=== PATIENT | male | born 1975 | race African-American/Black ===

== ENCOUNTER 2016-09-22 08:47 | Emergency (ER) | payer OTHER ==
[~2016-09-22] VITALS: Ht 177.8 cm; Wt 71.6 kg
[~2016-09-22 08:47] MED LIST: ADVAIR 100/501 DISK IH; ADVAIR 250/501 DISK IH; ADVAIR HFA120 INHALA IH; ADVIL200 MG PO; ALBUTEROL SULF8.5 GM IH; AMOXICILLIN500 MG PO; AUGMENTIN875 MG PO; AZITHROMYCIN250 MG PO; AZITHROMYCIN500 M1 PO; Augmentin PO; BENZONATATE100 MG PO; CASTOR OIL PO; CIPRO500 MG PO; DOXYCYCLINE HY100 MG PO; DUONEB 2.5-0.5 M3 ML IH; FAMOTIDINE20 MG PO; FLOVENT 44120 INHALA IH; INDOCIN25 MG PO; KEFLEX500 MG PO; LEVAQUIN500 MG PO; LEVAQUIN750 MG PO; LIDOCAINE20 MG/1 M5 PO; MEDROL DOSEPAK4 MG PO; METOCLOPRAMIDE H5 MG PO; MOTRIN IB200 MG PO; NAPROSYN500 MG PO; NAPROXEN500 MG PO; NOHOMEMEDS; ORAL ANESTHETIC7 GM MM; PEN-VEE K,VEET500 MG PO; PREDNISONE PO; PREDNISONE10 MG PO; PREDNISONE20 MG PO; PREDNISONE50 MG PO; PROVENTIL HFA6.7 GM IH; PROVENTIL,2.5 MG/3 M IH; PROVENTIL2.5 MG/3 M IH; Proventil,Ventolin H IH; REGLAN5 MG PO; TESSALON PERLE100 MG PO; TESSALON200 MG PO; TUMS500 MG PO; ULTRACET1 TABLET PO; VENTOLIN HFA18 GM IH; VIBRAMYCIN100 MG PO; ZITHROMAX TRI-500 MG PO; ZITHROMAX Z-PA250 MG PO; ZITHROMAX250 MG PO; predniSONE PO
[2016-09-22 09:33] LABS: HEMATOCRIT 39.9 % (38.0-50.0); MCH 28.6 PG (29.0-34.0); MCHC 33.1 G/DL (30.0-36.0); MCV 86.4 FL (86-99); MEAN PLAT.VOLUME 10.3 uM^3 (9.0-12.4); PLATELET COUNT 240 K/uL (156-360); RBC DIS.WIDTH-CV 13.8 % (11.8-14.6); RED BLOOD COUNT 4.62 M/uL (4.00-5.50); WHITE BLOOD COUNT 5.4 K/uL (4.1-10.2)
[2016-09-22 09:42] LABS: CHLORIDE 107 mEq/L (99-109); POTASSIUM 4.2 mEq/L (3.7-5.4); SODIUM 139 mEq/L (136-147)
[2016-09-22 09:44] LABS: GLUCOSE 86 mg/dL (70-99)
[2016-09-22 09:45] LABS: ANION GAP 5 MEQ/L (2-14)
[2016-09-22 09:47] LABS: GFR ESTIMATE (CALCULATED) > 59 mL/min/
[2016-09-22 09:48] LABS: UREA NITROGEN (BUN) 16 mg/dL (9-23)
[2016-09-22 09:55] LABS: TROP-I INTERPRETATION NEGATIVE; TROPONIN-I < 0.01 ng/mL (0.0-0.30)
[2016-09-22] MEDS ORDERED: ZITHROMAX Z-PA250 MG PO (11:37)
[2016-09-22] MEDS ORDERED: DELTASONE20 M1 PO (11:37)
[2016-09-22] MEDS ORDERED: ROBITUSSIN AC,T10 ML PO (11:37)
[2016-09-22 11:56] VITALS: BP 122/78
== END 2016-09-22 11:57 | disposition home or self-care (01) ==
LOC: EME 08:47
PROVIDERS: Emergency Medicine
DX: J40 Bronchitis, not specified as acute or chronic (principal); Z72.0 Tobacco use; J45.909 Unspecified asthma, uncomplicated; K21.9 Gastro-esophageal reflux disease without esophagitis; Z87.01 Personal history of pneumonia (recurrent)
CPT/HCPCS: 71010; 80048; 84484; 85027; 93005; 99281; 99284; J7512

== ENCOUNTER 2016-09-29 03:58 | Emergency (ER) | payer OTHER ==
[~2016-09-29] VITALS: Ht 177.8 cm; Wt 69.4 kg
[~2016-09-29 03:58] MED LIST changes: +DELTASONE20 M1 PO; +ROBITUSSIN AC,T10 ML PO
[2016-09-29] MEDS ORDERED: PERCOCET 5/31 TABLET PO (10:21)
[2016-09-29 10:34] VITALS: BP 113/89
== END 2016-09-29 11:09 | disposition home or self-care (01) ==
LOC: EME 03:58
DX: S22.31XA Fracture of one rib, right side, initial encounter for closed fracture (principal); S60.211A Contusion of right wrist, initial encounter; W13.9XXA Fall from, out of or through building, not otherwise specified, initial encounter; F17.200 Nicotine dependence, unspecified, uncomplicated
CPT/HCPCS: 71101; 71250; 73110; 99281; 99284

== ENCOUNTER 2016-11-13 08:56 | Emergency (ER) | payer OTHER ==
[~2016-11-13] VITALS: Ht 177.8 cm; Wt 69.7 kg
[~2016-11-13 08:56] MED LIST changes: +PERCOCET 5/31 TABLET PO
[2016-11-13] MEDS ORDERED: ZITHROMAX Z-PA250 MG PO (11:42)
[2016-11-13] MEDS ORDERED: PREDNISONE50 MG PO (11:42)
[2016-11-13] MEDS ORDERED: PROAIR HFA8.5 GM IH (11:42)
[2016-11-13] MEDS ORDERED: MOTRIN800 MG PO (11:42)
[2016-11-13 11:51] VITALS: BP 108/82
== END 2016-11-13 11:52 | disposition home or self-care (01) ==
LOC: EXP 08:56 → EME 08:56 → EXP 11:52
DX: J20.9 Acute bronchitis, unspecified (principal); R06.2 Wheezing; F17.200 Nicotine dependence, unspecified, uncomplicated
CPT/HCPCS: 71020; 73590; 94640; 99281; 99284; J7512

== ENCOUNTER 2016-11-19 09:22 | Emergency (ER) | payer OTHER ==
[~2016-11-19] VITALS: Ht 177.8 cm; Wt 98.0 kg
[~2016-11-19 09:22] MED LIST changes: +MOTRIN800 MG PO; +PROAIR HFA8.5 GM IH
[2016-11-19 10:38] LABS: EOSINOPHIL (%) 3.2 % (0-5); EOSINOPHIL COUNT 0.1 K/uL (0-0.3); HEMATOCRIT 45.5 % (38.0-50.0); LYMPHOCYTE COUNT 1.5 K/uL (1.0-2.8); MCH 28.9 PG (29.0-34.0); MCHC 33.2 G/DL (30.0-36.0); MEAN PLAT.VOLUME 10.2 uM^3 (9.0-12.4); MONOCYTE (%) 15.7 % (3-12); MONOCYTE COUNT 0.7 K/uL (0-0.8); NEUTROPHIL (%) 45.8 % (45-76); PLATELET COUNT 270 K/uL (156-360); RBC DIS.WIDTH-CV 12.9 % (11.8-14.6); RBC DIS.WIDTH-SD 40.5 % (39-53); RED BLOOD COUNT 5.23 M/uL (4.00-5.50); WHITE BLOOD COUNT 4.3 K/uL (4.1-10.2)
[2016-11-19 10:56] LABS: INFLUENZA A VIRAL ANTIGEN NEGATIVE; INFLUENZA B VIRAL ANTIGEN NEGATIVE
[2016-11-19 11:08] LABS: CHLORIDE 105 mEq/L (99-109); POTASSIUM 3.8 mEq/L (3.7-5.4); SODIUM 141 mEq/L (136-147)
[2016-11-19 11:10] LABS: GLUCOSE 93 mg/dL (70-99)
[2016-11-19 11:11] LABS: ANION GAP 9 MEQ/L (2-14)
[2016-11-19 11:12] LABS: TOTAL BILIRUBIN 0.6 mg/dL (0.0-1.0)
[2016-11-19 11:14] LABS: ALKALINE PHOSPHATASE 54 IU/L (3-129); GFR ESTIMATE (CALCULATED) > 59 mL/min/
[2016-11-19 11:15] LABS: UREA NITROGEN (BUN) 18 mg/dL (9-23)
[2016-11-19 15:02] LABS: TROP-I INTERPRETATION NEGATIVE; TROPONIN-I < 0.01 ng/mL (0.0-0.30)
[2016-11-19 16:11] LABS: TROP-I INTERPRETATION NEGATIVE; TROPONIN-I < 0.01 ng/mL (0.0-0.30)
[2016-11-19] MEDS ORDERED: PREDNISONE50 MG PO (16:24)
[2016-11-19] MEDS ORDERED: LEVAQUIN500 MG PO (16:24)
[2016-11-19 17:12] VITALS: BP 123/85
== END 2016-11-19 17:13 | disposition home or self-care (01) ==
LOC: EME 09:22
PROVIDERS: Emergency Medicine
DX: J45.901 Unspecified asthma with (acute) exacerbation (principal); F17.200 Nicotine dependence, unspecified, uncomplicated
CPT/HCPCS: 71020; 80053; 84484; 85025; 87040; 87502; 93005; 94644; 94645; 99281; 99285; J1956; J2930; J3475; J7030

== ENCOUNTER 2017-01-11 01:01 | Emergency (ER) | payer OTHER ==
[~2017-01-11] VITALS: Ht 180.3 cm; Wt 67.0 kg
[2017-01-11 01:37] LABS: EOSINOPHIL (%) 0.7 % (0-5); EOSINOPHIL COUNT 0.1 K/uL (0-0.3); IMMATURE GRANULOCYTE (%) 0.3 % (0.0-0.7); INSTRUMENT ABS NEUTROPHIL CT 4.2 K/uL; LYMPHOCYTE COUNT 1.9 K/uL (1.0-2.8); MCH 28.7 PG (29.0-34.0); MCHC 32.6 G/DL (30.0-36.0); MEAN PLAT.VOLUME 10.4 uM^3 (9.0-12.4); MONOCYTE (%) 8.1 % (3-12); MONOCYTE COUNT 0.6 K/uL (0-0.8); NEUTROPHIL COUNT 4.2 K/uL (1.8-6.4); PLATELET COUNT 290 K/uL (156-360); RBC DIS.WIDTH-SD 41.8 % (39-53); RED BLOOD COUNT 5.34 M/uL (4.00-5.50); WHITE BLOOD COUNT 6.8 K/uL (4.1-10.2)
[2017-01-11 01:47] LABS: AMYLASE 116 IU/L (1-118); CHLORIDE 109 mEq/L (99-109); POTASSIUM 4.2 mEq/L (3.7-5.4); SODIUM 145 mEq/L (136-147)
[2017-01-11 01:49] LABS: GLUCOSE 97 mg/dL (70-99)
[2017-01-11 01:50] LABS: ANION GAP 12 MEQ/L (2-14)
[2017-01-11 01:52] LABS: SERUM ETHYL ALCOHOL 150 mg/dL
[2017-01-11 01:53] LABS: GFR ESTIMATE (CALCULATED) > 59 mL/min/; UREA NITROGEN (BUN) 16 mg/dL (9-23)
[2017-01-11 01:56] LABS: LIPASE 41 U/L (1.0-51.0)
[2017-01-11] MEDS ORDERED: MOTRIN400 MG PO (02:36)
[2017-01-11] MEDS ORDERED: FLEXERIL10 MG PO (02:37)
== END 2017-01-11 03:09 | disposition home or self-care (01) ==
LOC: EME → TRA 01:01 → EME 01:01 → TRA 03:09
PROVIDERS: Emergency Medicine
PROC: 0HQ0XZZ Repair Scalp Skin, External Approach (ICD-10-PCS; principal; 2017-01-11)
PROC: 3E0234Z Introduction of Serum, Toxoid and Vaccine into Muscle, Percutaneous Approach (ICD-10-PCS; principal; 2017-01-11)
DX: S01.01XA Laceration without foreign body of scalp, initial encounter (principal); S80.11XA Contusion of right lower leg, initial encounter; V03.10XA Pedestrian on foot injured in collision with car, pick-up truck or van in traffic accident, initial encounter; F10.229 Alcohol dependence with intoxication, unspecified; J45.909 Unspecified asthma, uncomplicated; F17.200 Nicotine dependence, unspecified, uncomplicated
CPT/HCPCS: 70450; 71010; 72125; 73590; 80048; 81003; 82150; 83690; 85025; 86900; 86901; 94640; 99281; 99285; G0480

== ENCOUNTER 2017-01-19 04:27 | Emergency (ER) | payer SELFPAY ==
[~2017-01-19] VITALS: Ht 177.8 cm; Wt 69.7 kg
[~2017-01-19 04:27] MED LIST changes: +FLEXERIL10 MG PO; +MOTRIN400 MG PO
[2017-01-19] MEDS ORDERED: PROVENTIL HFA6.7 GM IH (07:18)
[2017-01-19 07:30] VITALS: BP 109/72
== END 2017-01-19 09:40 | disposition home or self-care (01) ==
LOC: EME 04:27
DX: J45.901 Unspecified asthma with (acute) exacerbation (principal); S80.11XD Contusion of right lower leg, subsequent encounter; S01.01XD Laceration without foreign body of scalp, subsequent encounter; Z48.02 Encounter for removal of sutures; M79.604 Pain in right leg; V49.9XXD Car occupant (driver) (passenger) injured in unspecified traffic accident, subsequent encounter; F17.200 Nicotine dependence, unspecified, uncomplicated
CPT/HCPCS: 73590; 94640; 99281; 99284; J1100

== ENCOUNTER 2017-02-28 16:10 | Emergency (ER) | payer SELFPAY ==
[~2017-02-28] VITALS: Ht 177.8 cm; Wt 68.9 kg
[2017-02-28 16:37] LABS: HEMATOCRIT 43.7 % (38.0-50.0); MCH 28.5 PG (29.0-34.0); MCV 88.8 FL (86-99); MEAN PLAT.VOLUME 10.1 uM^3 (9.0-12.4); PLATELET COUNT 264 K/uL (156-360); RBC DIS.WIDTH-CV 14.3 % (11.8-14.6); RBC DIS.WIDTH-SD 46.5 % (39-53); RED BLOOD COUNT 4.92 M/uL (4.00-5.50); WHITE BLOOD COUNT 9.1 K/uL (4.1-10.2)
[2017-02-28 16:46] LABS: CHLORIDE 106 mEq/L (99-109); POTASSIUM 3.6 mEq/L (3.7-5.4); SODIUM 142 mEq/L (136-147)
[2017-02-28 16:47] LABS: GLUCOSE 125 mg/dL (70-99)
[2017-02-28 16:49] LABS: ANION GAP 10 MEQ/L (2-14)
[2017-02-28 16:51] LABS: GFR ESTIMATE (CALCULATED) > 59 mL/min/
[2017-02-28 16:52] LABS: UREA NITROGEN (BUN) 17 mg/dL (9-23)
[2017-02-28] MEDS ORDERED: VENTOLIN HFA18 GM IH (21:04)
[2017-02-28] MEDS ORDERED: PREDNISONE20 MG PO (21:04)
[2017-02-28 22:04] VITALS: BP 113/66
== END 2017-02-28 21:30 | disposition home or self-care (01) ==
LOC: EME 16:10
DX: J20.9 Acute bronchitis, unspecified (principal); J45.909 Unspecified asthma, uncomplicated; F17.200 Nicotine dependence, unspecified, uncomplicated
CPT/HCPCS: 71020; 80048; 85027; 93005; 94640; 94640 76; 99281; 99284; J7512

== ENCOUNTER 2017-04-26 17:03 | Emergency (ER) | payer BC ==
[~2017-04-26] VITALS: Ht 177.8 cm; Wt 74.5 kg
[2017-04-26 18:08] LABS: HEMATOCRIT 41.3 % (38.0-50.0); MCH 28.8 PG (29.0-34.0); MCHC 32.9 G/DL (30.0-36.0); MCV 87.5 FL (86-99); MEAN PLAT.VOLUME 10.4 uM^3 (9.0-12.4); PLATELET COUNT 226 K/uL (156-360); RBC DIS.WIDTH-CV 12.6 % (11.8-14.6); RBC DIS.WIDTH-SD 40.4 % (39-53); RED BLOOD COUNT 4.72 M/uL (4.00-5.50)
[2017-04-26 18:21] LABS: CHLORIDE 107 mEq/L (99-109); POTASSIUM 3.9 mEq/L (3.7-5.4); SODIUM 142 mEq/L (136-147)
[2017-04-26 18:23] LABS: GLUCOSE 105 mg/dL (70-99)
[2017-04-26 18:24] LABS: ANION GAP 9 MEQ/L (2-14)
[2017-04-26 18:26] LABS: GFR ESTIMATE (CALCULATED) > 59 mL/min/
[2017-04-26 18:27] LABS: UREA NITROGEN (BUN) 17 mg/dL (9-23)
[2017-04-26 18:33] LABS: TROP-I INTERPRETATION NEGATIVE; TROPONIN-I < 0.01 ng/mL (0.0-0.30)
[2017-04-26 19:21] LABS: C-REACTIVE PROTEIN 2.2 MG/L (0-10)
[2017-04-26 19:37] LABS: ADD MIUA? YES; BILIRUBIN NEGATIVE; BLOOD NEGATIVE; COLOR YELLOW ((YELLOW)); GLUCOSE (STRIP) NEGATIVE; KETONES NEGATIVE; LEUKOCYTES NEGATIVE; NITRITE NEGATIVE; PROTEIN (STRIP) 30; SPECIFIC GRAVITY 1.029 (1.000-1.030); UROBILINOGEN 0.2 MG/DL (0.2-1.0)
[2017-04-26 19:45] LABS: ADD MEDTOX COMMENT Y; AMPHETAMINE NEGATIVE (500 ng/mL); BARBITURATES NEGATIVE (200 ng/mL); BENZODIAZEPINES NEGATIVE (150 ng/mL); COCAINE NEGATIVE (150 ng/mL); INTERNAL CONTROLS VALID? YES; METHADONE NEGATIVE (200 ng/mL); METHAMPHETAMINE NEGATIVE (500 ng/mL); OPIATES (MORPHINE) NEGATIVE (100 ng/mL); OXYCODONE NEGATIVE (100 ng/mL); PHENCYCLIDINE PRESUMPTIVE POSITIVE (25 ng/mL); PROPOXYPHENE NEGATIVE (300 ng/mL); THC CANNABINOIDS NEGATIVE (50 ng/mL); TRICYCLIC ANTIDEPRESSANTS NEGATIVE (300 ng/mL)
[2017-04-26 20:07] LABS: ERTH.SED.RATE 26 MM/HR (0-15)
[2017-04-26 20:07] LABS: RED BLOOD CELLS 0-5 /HPF (0-5); WHITE BLOOD CELLS 0-5 /HPF (0-5)
[2017-04-26 20:08] LABS: AMORPHOUS URATES CRYSTALS 2+; BACTERIA 1+ /HPF; CALCIUM OXALATE CRYSTALS RARE /HPF; CASTS PRESENT /LPF; CRYSTALS PRESENT; EPITHELIAL CELLS RARE /HPF; FINE GRANULAR CASTS 0-5 /LPF; MUCUS 1+ /LPF; UCUL ADDED? NO
[2017-04-26 20:10] LABS: PHENCYCLIDINE QUANT VALUE 0 NG/ML
[2017-04-26 20:10] LABS: D-DIMER ELISA < 150.00 ng/mLDDU (<230)
[2017-04-26] MEDS ORDERED: MEDROL DOSEPAK4 MG PO (21:01)
[2017-04-26] MEDS ORDERED: VENTOLIN HFA18 GM IH (21:01)
[2017-04-26 21:12] VITALS: BP 131/93
== END 2017-04-26 21:13 | disposition home or self-care (01) ==
LOC: EME 17:03
PROVIDERS: Physician Assistant
DX: R07.89 Other chest pain (principal); F16.90 Hallucinogen use, unspecified, uncomplicated; F12.90 Cannabis use, unspecified, uncomplicated; R00.2 Palpitations; R42 Dizziness and giddiness; R06.02 Shortness of breath; R11.0 Nausea; I45.10 Unspecified right bundle-branch block; Z82.49 Family history of ischemic heart disease and other diseases of the circulatory system; Z87.891 Personal history of nicotine dependence
CPT/HCPCS: 71020; 80048; 81003; 84484; 84999; 85027; 85379; 85651; 86140; 93005; 99281; 99283

== ENCOUNTER 2017-06-18 15:52 | Emergency (ER) | payer BC ==
[~2017-06-18] VITALS: Ht 177.8 cm; Wt 66.8 kg
[2017-06-18 16:13] VITALS: BP 95/70
== END 2017-06-18 18:11 | disposition left against medical advice (07) ==
LOC: EME 15:52
DX: R45.851 Suicidal ideations (principal); F10.10 Alcohol abuse, uncomplicated; F19.10 Other psychoactive substance abuse, uncomplicated; Z53.21 Procedure and treatment not carried out due to patient leaving prior to being seen by health care provider
CPT/HCPCS: 80048; 85027; G0480

== ENCOUNTER 2017-06-22 04:27 | Emergency (ER) | payer BC ==
[~2017-06-22] VITALS: Ht 177.8 cm; Wt 66.9 kg
[2017-06-22 05:27] LABS: CHLORIDE 109 mEq/L (99-109); POTASSIUM 3.6 mEq/L (3.7-5.4); SODIUM 143 mEq/L (136-147)
[2017-06-22 05:30] LABS: GLUCOSE 102 mg/dL (70-99)
[2017-06-22 05:31] LABS: ANION GAP 9 MEQ/L (2-14); TOTAL BILIRUBIN 0.3 mg/dL (0.0-1.0)
[2017-06-22 05:32] LABS: SERUM ETHYL ALCOHOL 43 mg/dL
[2017-06-22 05:33] LABS: ALKALINE PHOSPHATASE 56 IU/L (3-129); GFR ESTIMATE (CALCULATED) > 59 mL/min/
[2017-06-22 05:35] LABS: UREA NITROGEN (BUN) 13 mg/dL (9-23)
[2017-06-22 05:37] LABS: LIPASE 40 U/L (1.0-51.0)
[2017-06-22 05:39] LABS: EOSINOPHIL (%) 2.9 % (0-5); EOSINOPHIL COUNT 0.1 K/uL (0-0.3); HEMATOCRIT 43.7 % (38.0-50.0); IMMATURE GRANULOCYTE (%) 0.2 % (0.0-0.7); INSTRUMENT ABS NEUTROPHIL CT 1.9 K/uL; MCH 28.1 PG (29.0-34.0); MCV 87.6 FL (86-99); MEAN PLAT.VOLUME 10.1 uM^3 (9.0-12.4); MONOCYTE (%) 10.8 % (3-12); MONOCYTE COUNT 0.5 K/uL (0-0.8); NEUTROPHIL (%) 41.6 % (45-76); NEUTROPHIL COUNT 1.9 K/uL (1.8-6.4); PLATELET COUNT 290 K/uL (156-360); RBC DIS.WIDTH-CV 14.4 % (11.8-14.6); RBC DIS.WIDTH-SD 45.8 % (39-53); RED BLOOD COUNT 4.99 M/uL (4.00-5.50); WHITE BLOOD COUNT 4.5 K/uL (4.1-10.2)
[2017-06-22 10:41] VITALS: BP 126/77
== END 2017-06-22 10:43 | disposition home or self-care (01) ==
LOC: EME 04:27
PROVIDERS: Emergency Medicine
DX: J44.1 Chronic obstructive pulmonary disease with (acute) exacerbation (principal); R09.02 Hypoxemia; Z53.20 Procedure and treatment not carried out because of patient's decision for unspecified reasons; F32.1 Major depressive disorder, single episode, moderate; K21.9 Gastro-esophageal reflux disease without esophagitis; F17.200 Nicotine dependence, unspecified, uncomplicated; Z87.01 Personal history of pneumonia (recurrent)
CPT/HCPCS: 71020; 80053; 83690; 85025; 90839; 94640; 94644; 99281; 99285; G0480; J0456; J2405; J2930; J7030

== ENCOUNTER 2017-06-30 07:49 | Emergency (ER) | payer BC ==
[~2017-06-30] VITALS: Ht 177.8 cm; Wt 68.4 kg
[2017-06-30 09:02] VITALS: BP 122/92
[2017-06-30] MEDS ORDERED: ALBUTEROL2.5 MG/3 M IH (09:07)
[2017-06-30] MEDS ORDERED: PROVENTIL HFA6.7 GM IH (09:07)
== END 2017-06-30 09:02 | disposition left against medical advice (07) ==
LOC: EME 07:49
DX: J45.909 Unspecified asthma, uncomplicated (principal); F41.9 Anxiety disorder, unspecified; R06.02 Shortness of breath; F17.200 Nicotine dependence, unspecified, uncomplicated; K21.9 Gastro-esophageal reflux disease without esophagitis; F32.9 Major depressive disorder, single episode, unspecified
CPT/HCPCS: 99281; 99284

== ENCOUNTER 2017-12-15 03:47 | Emergency (ER) | payer BC ==
[~2017-12-15] VITALS: Ht 177.8 cm; Wt 71.4 kg
[~2017-12-15 03:47] MED LIST changes: +ALBUTEROL2.5 MG/3 M IH
[2017-12-15] MEDS ORDERED: ZITHROMAX Z-PA250 MG PO (04:57)
[2017-12-15] MEDS ORDERED: PREDNISONE50 MG PO (04:57)
[2017-12-15] MEDS ORDERED: PROVENTIL,2.5 MG/3 M IH (06:24)
[2017-12-15 06:27] VITALS: BP 111/84
== END 2017-12-15 06:37 | disposition home or self-care (01) ==
LOC: EME 03:47
DX: J44.1 Chronic obstructive pulmonary disease with (acute) exacerbation (principal); R07.9 Chest pain, unspecified; F17.200 Nicotine dependence, unspecified, uncomplicated; Z87.01 Personal history of pneumonia (recurrent); K21.9 Gastro-esophageal reflux disease without esophagitis; F41.9 Anxiety disorder, unspecified
CPT/HCPCS: 71045; 94644; 99281; 99285; J7512

== ENCOUNTER 2018-03-09 04:06 | Inpatient (IN) | payer BC ==
[~2018-03-09] VITALS: Ht 177.8 cm; Wt 71.5 kg
[2018-03-09 05:29] LABS: HEMATOCRIT 37.7 % (38.0-50.0); HEMOGLOBIN 12.6 G/DL (12.5-16.6); MCHC 33.4 G/DL (30.0-36.0); MCV 86.9 FL (86-99); PLATELET COUNT 339 K/uL (156-360); RBC DIS.WIDTH-CV 13.2 % (11.8-14.6); RBC DIS.WIDTH-SD 41.6 % (39-53); RED BLOOD COUNT 4.34 M/uL (4.00-5.50)
[2018-03-09 05:41] LABS: CHLORIDE 105 mEq/L (99-109); POTASSIUM 3.6 mEq/L (3.7-5.4); SODIUM 139 mEq/L (136-147)
[2018-03-09 05:42] LABS: MAGNESIUM 1.9 mg/dL (1.3-2.7)
[2018-03-09 05:43] LABS: GLUCOSE 121 mg/dL (70-99)
[2018-03-09 05:47] LABS: CREATININE 0.9 mg/dL (0.6-1.3); GFR ESTIMATE (CALCULATED) > 59 mL/min/ (58.99-99999)
[2018-03-09 05:48] LABS: UREA NITROGEN (BUN) 16 mg/dL (9-23)
[2018-03-09 05:55] LABS: TROP-I INTERPRETATION NEGATIVE; TROPONIN-I < 0.01 ng/mL (0.0-0.30)
[2018-03-09 12:55] VITALS: BP 123/61
[2018-03-09 13:16] LABS: TROP-I INTERPRETATION NEGATIVE; TROPONIN-I < 0.01 ng/mL (0.0-0.30)
[2018-03-09 15:10] VITALS: BP 119/66
[2018-03-09 18:15] LABS: TROP-I INTERPRETATION NEGATIVE; TROPONIN-I < 0.01 ng/mL (0.0-0.30)
[2018-03-09 19:49] VITALS: BP 122/64
[2018-03-10 00:27] VITALS: BP 131/64
[2018-03-10 04:40] VITALS: BP 99/55
[2018-03-10 07:00] VITALS: BP 107/66
[2018-03-10] MEDS ORDERED: ASPIR-LOW81 MG PO (11:19)
[2018-03-10] MEDS ORDERED: PREDNISONE5 MG PO (11:20)
[2018-03-10] MEDS ORDERED: AZITHROMYCIN500 MG PO (11:20)
[2018-03-10] MEDS ORDERED: DULERA 200 MCG/13 GM IH (11:22)
[2018-03-10 12:43] VITALS: BP 110/78
== END 2018-03-10 15:00 | disposition home or self-care (01) | DRG 191 ==
LOC: EME 04:06 → EDOF 07:36 → 4SOUTH 07:36 → EDOF 07:36 → ENRESERV 07:37 → 4SOUTH 12:29
PROVIDERS: Physician Assistant
DX: J44.1 Chronic obstructive pulmonary disease with (acute) exacerbation (principal); J20.9 Acute bronchitis, unspecified; J44.0 Chronic obstructive pulmonary disease with (acute) lower respiratory infection; J45.901 Unspecified asthma with (acute) exacerbation; J84.9 Interstitial pulmonary disease, unspecified; J84.10 Pulmonary fibrosis, unspecified; K21.9 Gastro-esophageal reflux disease without esophagitis; F32.9 Major depressive disorder, single episode, unspecified; F41.9 Anxiety disorder, unspecified; F17.200 Nicotine dependence, unspecified, uncomplicated; Z59.0 Homelessness; Z91.19 Patient's noncompliance with other medical treatment and regimen; Z87.01 Personal history of pneumonia (recurrent)
CPT/HCPCS: 71046; 80048; 83735; 84238 90; 84484; 85027; 93005; 94640; 94640 76; 94760; 99202; 99281; 99285; G0378; J0456; J1644; J2920; J2930

== ENCOUNTER 2018-03-27 07:09 | Emergency (ER) | payer BC ==
[~2018-03-27] VITALS: Ht 177.8 cm; Wt 70.0 kg
[~2018-03-27 07:09] MED LIST changes: +ASPIR-LOW81 MG PO; +AZITHROMYCIN500 MG PO; +DULERA 200 MCG/13 GM IH; +PREDNISONE5 MG PO
[2018-03-27 08:26] LABS: HEMATOCRIT 37.4 % (38.0-50.0); HEMOGLOBIN 12.4 G/DL (12.5-16.6); MCH 29.2 PG (29.0-34.0); MCHC 33.2 G/DL (30.0-36.0); RBC DIS.WIDTH-CV 13.7 % (11.8-14.6); RBC DIS.WIDTH-SD 43.9 % (39-53); RED BLOOD COUNT 4.25 M/uL (4.00-5.50); WHITE BLOOD COUNT 4.7 K/uL (4.1-10.2)
[2018-03-27 08:37] LABS: CHLORIDE 106 mEq/L (99-109); SODIUM 141 mEq/L (136-147)
[2018-03-27 08:39] LABS: GLUCOSE 119 mg/dL (70-99)
[2018-03-27 08:42] LABS: CREATININE 1.3 mg/dL (0.6-1.3); GFR ESTIMATE (CALCULATED) > 59 mL/min/ (58.99-99999)
[2018-03-27 08:43] LABS: UREA NITROGEN (BUN) 24 mg/dL (9-23)
[2018-03-27 08:59] LABS: PLAT.SUFFICIENCY ADEQUATE
[2018-03-27 09:06] LABS: PLATELET COUNT 199 K/uL (156-360)
[2018-03-27] MEDS ORDERED: PREDNISONE20 MG PO (09:24)
[2018-03-27] MEDS ORDERED: DUONEB 2.5-0.5 M3 ML AEROSOL (09:44)
[2018-03-27] MEDS ORDERED: VENTOLIN HFA18 GM IH (09:44)
[2018-03-27] MEDS ORDERED: FIORICET 50-301 EAC1 PO (09:44)
[2018-03-27 10:21] VITALS: BP 100/59
== END 2018-03-27 10:33 | disposition home or self-care (01) ==
LOC: EME 07:09
PROVIDERS: Nurse Practitioner Family
DX: J44.1 Chronic obstructive pulmonary disease with (acute) exacerbation (principal); F17.210 Nicotine dependence, cigarettes, uncomplicated; K21.9 Gastro-esophageal reflux disease without esophagitis; Z87.01 Personal history of pneumonia (recurrent); Z90.81 Acquired absence of spleen
CPT/HCPCS: 80048; 85027; 94644; J2930

== ENCOUNTER 2018-04-29 17:56 | Inpatient (IN) | payer BC ==
[~2018-04-29] VITALS: Ht 177.8 cm; Wt 68.0 kg
[~2018-04-29 17:56] MED LIST changes: +DUONEB 2.5-0.5 M3 ML AEROSOL; +FIORICET 50-301 EAC1 PO
[2018-04-29 18:25] LABS: BASOPHIL (%) 0.6 % (0-1); EOSINOPHIL (%) 1.7 % (0-5); EOSINOPHIL COUNT 0.1 K/uL (0-0.3); HEMATOCRIT 39.3 % (38.0-50.0); HEMOGLOBIN 13.1 G/DL (12.5-16.6); IMMATURE GRANULOCYTE (%) 0.4 % (0.0-0.7); LYMPHOCYTE (%) 30.7 % (15-42); LYMPHOCYTE COUNT 2.1 K/uL (1.0-2.8); MCH 29.8 PG (29.0-34.0); MCHC 33.3 G/DL (30.0-36.0); MCV 89.3 FL (86-99); MONOCYTE (%) 7.7 % (3-12); MONOCYTE COUNT 0.5 K/uL (0-0.8); NEUTROPHIL (%) 58.9 % (45-76); NEUTROPHIL COUNT 4.1 K/uL (1.8-6.4); PLATELET COUNT 268 K/uL (156-360); RBC DIS.WIDTH-CV 13.9 % (11.8-14.6); RBC DIS.WIDTH-SD 45.5 % (39-53)
[2018-04-29 18:40] LABS: AMYLASE 66 IU/L (1-118); CHLORIDE 105 mEq/L (99-109); POTASSIUM 3.5 mEq/L (3.7-5.4); SODIUM 140 mEq/L (136-147)
[2018-04-29 18:42] LABS: GLUCOSE 121 mg/dL (70-99)
[2018-04-29 18:45] LABS: SERUM ETHYL ALCOHOL 69 mg/dL
[2018-04-29 18:46] LABS: CREATININE 0.9 mg/dL (0.6-1.3); GFR ESTIMATE (CALCULATED) > 59 mL/min/ (58.99-99999)
[2018-04-29 18:47] LABS: UREA NITROGEN (BUN) 15 mg/dL (9-23)
[2018-04-29 18:49] LABS: LIPASE 20 U/L (1.0-51.0)
[2018-04-29 19:04] LABS: APPEARANCE SL.HAZY ((CLEAR)); BILIRUBIN NEGATIVE; BLOOD NEGATIVE; COLOR YELLOW ((YELLOW)); GLUCOSE (STRIP) NEGATIVE; KETONES NEGATIVE; LEUKOCYTES NEGATIVE; NITRITE NEGATIVE; PROTEIN (STRIP) 100; SPECIFIC GRAVITY 1.025 (1.000-1.030)
[2018-04-29 19:15] LABS: BACTERIA RARE /HPF; EPITHELIAL CELLS RARE /HPF; HYALINE CASTS TNTC /LPF; MUCUS 3+ /LPF; UCUL ADDED? NO; WHITE BLOOD CELLS 0-5 /HPF (0-5)
[2018-04-29 19:21] LABS: AMPHETAMINE NEGATIVE (500 ng/mL); BARBITURATES NEGATIVE (200 ng/mL); BENZODIAZEPINES NEGATIVE (150 ng/mL); BUPRENORPHINE NEGATIVE (10 ng/mL); COCAINE NEGATIVE (150 ng/mL); METHADONE NEGATIVE (200 ng/mL); METHAMPHETAMINE NEGATIVE (500 ng/mL); OPIATES (MORPHINE) NEGATIVE (100 ng/mL); OXYCODONE NEGATIVE (100 ng/mL); PHENCYCLIDINE PRESUMPTIVE POSITIVE (25 ng/mL); PROPOXYPHENE NEGATIVE (300 ng/mL); THC CANNABINOIDS PRESUMPTIVE POSITIVE (50 ng/mL); TRICYCLIC ANTIDEPRESSANTS NEGATIVE (300 ng/mL)
[2018-04-29 22:50] VITALS: BP 105/80
[2018-04-29 23:00] VITALS: BP 105/80
[2018-04-30] VITALS (18 sets, daily range): BP systolic 94–1123; BP diastolic 64–93
[2018-04-30 00:24] LABS: DEVICE VENT; FI02 100 %; MECHANICAL RATE 12 resp/min; MODE AC; PEEP 5 CM/H20; SITE RR; TIDAL VOLUME 400 ML; TOTAL RESP RATE 12 resp/min
[2018-04-30 00:25] LABS: BASE EXCESS 3.2 mEq/L (-3 to +3); BICARBONATE 31.5 mEq/L (22-26); CARBOXY HGB 0.9 % (0-5); METHEMOGLOBIN 0 % (0-1.5); PCO2 67 mm Hg (35-45); PO2 445 mm Hg (80-100); pH 7.28 (7.35-7.45)
[2018-04-30 00:26] LABS: COMMENTS - BLOOD GASES C+ DR IS AWARE
[2018-04-30 02:38] LABS: COMMENTS - BLOOD GASES C+; DEVICE VENT; FI02 50 %; MECHANICAL RATE 20 resp/min; MODE AC; SITE RR
[2018-04-30 02:39] LABS: BASE EXCESS 3.4 mEq/L (-3 to +3); BICARBONATE 29.9 mEq/L (22-26); CARBOXY HGB 1.8 % (0-5); METHEMOGLOBIN 1.1 % (0-1.5); PCO2 53 mm Hg (35-45); PEEP 5 CM/H20; PO2 114 mm Hg (80-100); TIDAL VOLUME 420 ML; TOTAL RESP RATE 20 resp/min; pH 7.36 (7.35-7.45)
[2018-04-30 05:13] LABS: HEMATOCRIT 37.9 % (38.0-50.0); HEMOGLOBIN 12.1 G/DL (12.5-16.6); MCH 29.2 PG (29.0-34.0); MCHC 31.9 G/DL (30.0-36.0); MCV 91.3 FL (86-99); PLATELET COUNT 211 K/uL (156-360); RBC DIS.WIDTH-CV 14.3 % (11.8-14.6); RBC DIS.WIDTH-SD 48.3 % (39-53); RED BLOOD COUNT 4.15 M/uL (4.00-5.50); WHITE BLOOD COUNT 9.7 K/uL (4.1-10.2)
[2018-04-30 05:30] LABS: ALBUMIN 3.5 G/DL (3.2-4.8); ALKALINE PHOSPHATASE 34 IU/L (3-129); ALT (GPT) 29 IU/L (3-49); AST (GOT) 41 IU/L (2-34); CHLORIDE 108 MEQ/L (99-109); CREATININE 0.8 MG/DL (0.6-1.3); GFR ESTIMATE (CALCULATED) > 59 mL/min/ (58.99-99999); MAGNESIUM 1.8 mg/dl (1.3-2.7); PHOSPHORUS 1.3 mg/dL (2.5-4.9); POTASSIUM 3.7 MEQ/L (3.7-5.4); SODIUM 142 MEQ/L (136-147); TOTAL BILIRUBIN 0.5 MG/DL (0.0-1.0); TOTAL PROTEIN 6.2 G/DL (6.4-8.3); UREA NITROGEN (BUN) 13 mg/dL (9-23)
[2018-04-30 05:54] LABS: GLUCOSE 86 mg/dL (70-99)
[2018-04-30 05:57] LABS: COMMENTS - BLOOD GASES C+; DEVICE VENT; FI02 50 %; MECHANICAL RATE 24 resp/min; MODE AC; PEEP 5 CM/H20; SITE RR; TIDAL VOLUME 420 ML; TOTAL RESP RATE 24 resp/min
[2018-04-30 05:58] LABS: CARBOXY HGB 1.7 % (0-5); PCO2 35 mm Hg (35-45); PO2 175 mm Hg (80-100); pH 7.48 (7.35-7.45)
[2018-04-30 05:59] LABS: BASE EXCESS 2.8 mEq/L (-3 to +3); BICARBONATE 26.1 mEq/L (22-26)
[2018-05-01] VITALS (24 sets, daily range): BP systolic 88–152; BP diastolic 42–106
[2018-05-01 05:15] LABS: BASOPHIL (%) 0.2 % (0-1); EOSINOPHIL (%) 0.1 % (0-5); HEMATOCRIT 37.8 % (38.0-50.0); HEMOGLOBIN 12.1 G/DL (12.5-16.6); IMMATURE GRANULOCYTE (%) 0.4 % (0.0-0.7); LYMPHOCYTE (%) 8.3 % (15-42); LYMPHOCYTE COUNT 0.9 K/uL (1.0-2.8); MCH 29.1 PG (29.0-34.0); MCV 90.9 FL (86-99); MONOCYTE (%) 11.1 % (3-12); MONOCYTE COUNT 1.2 K/uL (0-0.8); NEUTROPHIL (%) 79.9 % (45-76); NEUTROPHIL COUNT 8.7 K/uL (1.8-6.4); PLATELET COUNT 181 K/uL (156-360); RBC DIS.WIDTH-CV 14.3 % (11.8-14.6); RBC DIS.WIDTH-SD 48.1 % (39-53); RED BLOOD COUNT 4.16 M/uL (4.00-5.50); WHITE BLOOD COUNT 10.9 K/uL (4.1-10.2)
[2018-05-01 05:31] LABS: COMMENTS - BLOOD GASES C+; FI02 40 %; MECHANICAL RATE 24 resp/min; PCO2 39 mm Hg (35-45); SITE RR; pH 7.47 (7.35-7.45)
[2018-05-01 05:32] LABS: BASE EXCESS 4.4 mEq/L (-3 to +3); BICARBONATE 28.4 mEq/L (22-26); CARBOXY HGB 1.7 % (0-5); METHEMOGLOBIN 1.6 % (0-1.5); O2 SATURATION (CALCULATED) 95.7 % (95-99); PO2 59 mm Hg (80-100)
[2018-05-01 06:31] LABS: CHLORIDE 104 MEQ/L (99-109); CREATININE 0.6 MG/DL (0.6-1.3); GFR ESTIMATE (CALCULATED) > 59 mL/min/ (58.99-99999); GLUCOSE 96 mg/dL (70-99); POTASSIUM 3.7 MEQ/L (3.7-5.4); SODIUM 140 MEQ/L (136-147); UREA NITROGEN (BUN) 9 mg/dL (9-23)
[2018-05-02] VITALS (22 sets, daily range): BP systolic 99–131; BP diastolic 66–92
[2018-05-02 08:50] LABS: BASOPHIL (%) 0.3 % (0-1); EOSINOPHIL (%) 0.9 % (0-5); EOSINOPHIL COUNT 0.1 K/uL (0-0.3); HEMATOCRIT 33.9 % (38.0-50.0); IMMATURE GRANULOCYTE (%) 0.3 % (0.0-0.7); LYMPHOCYTE (%) 10.3 % (15-42); LYMPHOCYTE COUNT 1.2 K/uL (1.0-2.8); MCH 29.6 PG (29.0-34.0); MCHC 32.4 G/DL (30.0-36.0); MCV 91.4 FL (86-99); MONOCYTE (%) 9.9 % (3-12); MONOCYTE COUNT 1.1 K/uL (0-0.8); NEUTROPHIL (%) 78.3 % (45-76); NEUTROPHIL COUNT 8.8 K/uL (1.8-6.4); PLATELET COUNT 166 K/uL (156-360); RBC DIS.WIDTH-CV 13.8 % (11.8-14.6); RBC DIS.WIDTH-SD 46.3 % (39-53); RED BLOOD COUNT 3.71 M/uL (4.00-5.50); WHITE BLOOD COUNT 11.3 K/uL (4.1-10.2)
[2018-05-02 09:39] LABS: CHLORIDE 109 MEQ/L (99-109); CREATININE 0.7 MG/DL (0.6-1.3); GFR ESTIMATE (CALCULATED) > 59 mL/min/ (58.99-99999); GLUCOSE 127 mg/dL (70-99); POTASSIUM 4.2 MEQ/L (3.7-5.4); SODIUM 143 MEQ/L (136-147); UREA NITROGEN (BUN) 10 mg/dL (9-23)
[2018-05-02 09:40] LABS: PHOSPHORUS 3.4 mg/dL (2.5-4.9)
[2018-05-03 03:49] VITALS: BP 118/78
[2018-05-03 05:41] LABS: BASOPHIL (%) 0.5 % (0-1); EOSINOPHIL (%) 3.2 % (0-5); EOSINOPHIL COUNT 0.2 K/uL (0-0.3); HEMATOCRIT 33.4 % (38.0-50.0); HEMOGLOBIN 10.6 G/DL (12.5-16.6); IMMATURE GRANULOCYTE (%) 0.3 % (0.0-0.7); LYMPHOCYTE (%) 21.7 % (15-42); LYMPHOCYTE COUNT 1.4 K/uL (1.0-2.8); MCH 29.4 PG (29.0-34.0); MCHC 31.7 G/DL (30.0-36.0); MCV 92.5 FL (86-99); MONOCYTE (%) 12.7 % (3-12); MONOCYTE COUNT 0.8 K/uL (0-0.8); NEUTROPHIL (%) 61.6 % (45-76); NEUTROPHIL COUNT 4.1 K/uL (1.8-6.4); PLATELET COUNT 180 K/uL (156-360); RBC DIS.WIDTH-CV 13.8 % (11.8-14.6); RBC DIS.WIDTH-SD 47.3 % (39-53); RED BLOOD COUNT 3.61 M/uL (4.00-5.50); WHITE BLOOD COUNT 6.6 K/uL (4.1-10.2)
[2018-05-03 06:31] LABS: CHLORIDE 105 MEQ/L (99-109); CREATININE 0.6 MG/DL (0.6-1.3); GFR ESTIMATE (CALCULATED) > 59 mL/min/ (58.99-99999); MAGNESIUM 1.9 mg/dl (1.3-2.7); PHOSPHORUS 3.5 mg/dL (2.5-4.9); POTASSIUM 3.8 MEQ/L (3.7-5.4); SODIUM 141 MEQ/L (136-147); UREA NITROGEN (BUN) 7 mg/dL (9-23)
[2018-05-03 06:32] LABS: GLUCOSE 92 mg/dL (70-99)
[2018-05-03 08:27] VITALS: BP 126/72
[2018-05-03 11:13] VITALS: BP 131/78
[2018-05-03 15:34] VITALS: BP 137/85
[2018-05-03 20:00] VITALS: BP 141/81
[2018-05-03 23:55] VITALS: BP 138/86
[2018-05-04 04:00] VITALS: BP 127/79
[2018-05-04 07:50] VITALS: BP 125/79
[2018-05-04 11:34] VITALS: BP 140/87
[2018-05-04 20:00] VITALS: BP 138/95
[2018-05-04 23:55] VITALS: BP 134/84
[2018-05-05] VITALS (7 sets, daily range): BP systolic 126–141; BP diastolic 67–91
[2018-05-05 11:14] LABS: HEMATOCRIT 35.1 % (38.0-50.0); HEMOGLOBIN 11.3 G/DL (12.5-16.6); MCH 29.3 PG (29.0-34.0); MCHC 32.2 G/DL (30.0-36.0); MCV 90.9 FL (86-99); RBC DIS.WIDTH-SD 43.3 % (39-53); RED BLOOD COUNT 3.86 M/uL (4.00-5.50); WHITE BLOOD COUNT 4.1 K/uL (4.1-10.2)
[2018-05-05 11:18] LABS: PLATELET COUNT 279 K/uL (156-360)
[2018-05-05 11:37] LABS: ALKALINE PHOSPHATASE 29 IU/L (3-129); ALT (GPT) 15 IU/L (3-49); AST (GOT) 14 IU/L (2-34); CHLORIDE 100 MEQ/L (99-109); CREATININE 0.6 MG/DL (0.6-1.3); GFR ESTIMATE (CALCULATED) > 59 mL/min/ (58.99-99999); GLUCOSE 84 mg/dL (70-99); MAGNESIUM 1.9 mg/dl (1.3-2.7); PHOSPHORUS 2.6 mg/dL (2.5-4.9); POTASSIUM 3.8 MEQ/L (3.7-5.4); SODIUM 138 MEQ/L (136-147); TOTAL BILIRUBIN 0.3 MG/DL (0.0-1.0); TOTAL PROTEIN 6.4 G/DL (6.4-8.3); UREA NITROGEN (BUN) 9 mg/dL (9-23)
[2018-05-06 04:22] VITALS: BP 113/79
[2018-05-06 08:18] VITALS: BP 120/75
[2018-05-06] MEDS ORDERED: MULTI VITAMIN1 EACH PO (08:43)
[2018-05-06] MEDS ORDERED: VENTOLIN HFA18 GM IH (08:43)
[2018-05-06 11:16] VITALS: BP 135/93
[2018-05-06 15:42] VITALS: BP 115/81
[2018-05-06 19:44] VITALS: BP 124/82
[2018-05-06 23:28] VITALS: BP 121/82
[2018-05-07 03:33] VITALS: BP 122/75
[2018-05-07 08:25] VITALS: BP 128/81
[2018-05-07 10:52] VITALS: BP 130/90
[2018-05-07 19:21] VITALS: BP 132/88
[2018-05-07 23:21] VITALS: BP 131/86
[2018-05-08] VITALS (7 sets, daily range): BP systolic 125–144; BP diastolic 76–99
[2018-05-09] VITALS (7 sets, daily range): BP systolic 111–139; BP diastolic 63–93
[2018-05-10 04:23] VITALS: BP 111/77
[2018-05-10 07:53] VITALS: BP 98/67
[2018-05-10 11:51] VITALS: BP 96/67
[2018-05-10 16:22] VITALS: BP 91/61
[2018-05-10 20:14] VITALS: BP 103/67
[2018-05-11 00:10] VITALS: BP 97/69
[2018-05-11 03:58] VITALS: BP 102/70
[2018-05-11 07:43] VITALS: BP 100/65
[2018-05-11] MEDS ORDERED: OXYCODONE HCL15 MG PO (09:28)
[2018-05-11] MEDS ORDERED: GABAPENTIN300 MG PO (09:28)
[2018-05-11] MEDS ORDERED: ZANAFLEX4 M1 PO (09:29)
[2018-05-11 11:37] VITALS: BP 105/63
== END 2018-05-11 15:54 | disposition home or self-care (01) | DRG 471 ==
LOC: TRA 17:56 → 4WEST 21:34 → 3EAST 21:34 → EDOF 21:34 → ENRESERV 21:49 → 4WEST 22:53 → ENRESERV 05-02 20:56 → 4EAST 05-02 22:38 → 3EAST 05-05 13:57
PROVIDERS: Emergency Medicine; Specialist; Surgery
DX: S12.390A Other displaced fracture of fourth cervical vertebra, initial encounter for closed fracture (principal); S06.369A Traumatic hemorrhage of cerebrum, unspecified, with loss of consciousness of unspecified duration, initial encounter; J96.00 Acute respiratory failure, unspecified whether with hypoxia or hypercapnia; S32.028A Other fracture of second lumbar vertebra, initial encounter for closed fracture; S32.048A Other fracture of fourth lumbar vertebra, initial encounter for closed fracture; S32.038A Other fracture of third lumbar vertebra, initial encounter for closed fracture; S82.091A Other fracture of right patella, initial encounter for closed fracture; W13.0XXA Fall from, out of or through balcony, initial encounter; S12.500A Unspecified displaced fracture of sixth cervical vertebra, initial encounter for closed fracture; S02.0XXA Fracture of vault of skull, initial encounter for closed fracture; S02.19XA Other fracture of base of skull, initial encounter for closed fracture; R45.851 Suicidal ideations; S06.2X1A Diffuse traumatic brain injury with loss of consciousness of 30 minutes or less, initial encounter; R40.2432 Glasgow coma scale score 3-8, at arrival to emergency department; S12.290A Other displaced fracture of third cervical vertebra, initial encounter for closed fracture; F12.90 Cannabis use, unspecified, uncomplicated; F17.210 Nicotine dependence, cigarettes, uncomplicated; F22 Delusional disorders; J44.9 Chronic obstructive pulmonary disease, unspecified; K21.9 Gastro-esophageal reflux disease without esophagitis; M19.90 Unspecified osteoarthritis, unspecified site; M50.221 Other cervical disc displacement at C4-C5 level; S01.01XA Laceration without foreign body of scalp, initial encounter; I71.2 Thoracic aortic aneurysm, without rupture; J34.2 Deviated nasal septum; K02.9 Dental caries, unspecified; Y90.3 Blood alcohol level of 60-79 mg/100 ml; S05.12XA Contusion of eyeball and orbital tissues, left eye, initial encounter; S80.212A Abrasion, left knee, initial encounter; S80.211A Abrasion, right knee, initial encounter; M40.209 Unspecified kyphosis, site unspecified; M43.12 Spondylolisthesis, cervical region; F41.9 Anxiety disorder, unspecified; R45.1 Restlessness and agitation; R45.4 Irritability and anger; F33.9 Major depressive disorder, recurrent, unspecified; F10.229 Alcohol dependence with intoxication, unspecified; Z53.29 Procedure and treatment not carried out because of patient's decision for other reasons; Z91.19 Patient's noncompliance with other medical treatment and regimen; Z78.1 Physical restraint status; Z79.51 Long term (current) use of inhaled steroids; Z83.3 Family history of diabetes mellitus; Z90.81 Acquired absence of spleen
CPT/HCPCS: 36600; 70450; 70486; 71045; 71260; 72020; 72125; 72129; 72132; 72156; 73560; 73564; 74177; 76000; 80047; 80048; 80048 91; 80053; 81003; 82150; 82948; 83690; 83735; 84100; 84999; 85025; 85025 91; 85027; 86850; 86900; 86901; 87070; 87205; 87641; 92610 GN; 93005; 94002; 94003; 94640; 94760; 94799; 97530 GO; 97530 GP; 99281; 99285; C9113; G0480; J0295; J0330; J0690; J1170; J1644; J1885; J1953; J2250; J2405; J2704; J3010; J3480; J7030; J7040; J7050; J7120; S0028